=== PATIENT | female | born 1960 | race Caucasian/White ===

== ENCOUNTER 2022-10-15 01:17 | Emergency (ER) | payer OTHER ==
[~2022-10-15] VITALS: Ht 152.4 cm; Wt 111.4 kg
[2022-10-15 01:19] VITALS: TEMP 97.4
[2022-10-15 01:52] VITALS: BP 114/78; PULSE 76
== END 2022-10-15 01:52 | disposition home or self-care (01) ==
LOC: COL.ER 01:17
DX: Z02.79 Encounter for issue of other medical certificate (principal); T78.40XA Allergy, unspecified, initial encounter; R03.0 Elevated blood-pressure reading, without diagnosis of hypertension; F17.210 Nicotine dependence, cigarettes, uncomplicated; Z28.310 Unvaccinated for COVID-19

== ENCOUNTER 2024-03-10 06:15 | Emergency (ER) | payer OTHER ==
[~2024-03-10] VITALS: Ht 152.4 cm; Wt 118.2 kg
[2024-03-10 06:31] VITALS: BP 147/83; TEMP 98.5
[2024-03-10] MEDS ORDERED: Ketorolac 15 MG/ML VIAL IM ONE (06:45)
[2024-03-10 07:18] VITALS: PULSE 94
== END 2024-03-10 07:18 | disposition home or self-care (01) ==
LOC: COL.ER 06:15
DX: S99.922A Unspecified injury of left foot, initial encounter (principal); W01.119A Fall on same level from slipping, tripping and stumbling with subsequent striking against unspecified sharp object, initial encounter; Y93.01 Activity, walking, marching and hiking
CPT/HCPCS: J1885